=== PATIENT | female | born 1955 | race Caucasian/White ===

== ENCOUNTER 2020-03-26 11:40 | Emergency (ER) | payer SELFPAY ==
[~2020-03-26] VITALS: Ht 160 cm; Wt 81.7 kg
[2020-03-26 12:03] LABS: BASOPHILS ABSOLUTE AUTO 0.14 K/mm3 (0.00-0.23); BASOPHILS PERCENT AUTO 2 % (0-2); EOSINOPHILS ABSOLUTE AUTO 0.84 K/mm3 (0.00-0.68); EOSINOPHILS PERCENT AUTO 10 % (0-6); Hemoglobin 14.3 g/dL (11.5-16.0); IMMATURE GRAN ABSOLUTE AUTO 0.03 K/mm3 (0.00-0.10); IMMATURE GRAN PERCENT AUTO 0 % (0-1); LYMPHOCYTES ABSOLUTE AUTO 2.54 K/mm3 (0.84-5.20); LYMPHOCYTES PERCENT AUTO 30 % (21-46); MONOCYTES ABSOLUTE AUTO 0.62 K/mm3 (0.16-1.47); MONOCYTES PERCENT AUTO 7 % (4-13); Mean Corpuscular HGB 27.6 pg (26.0-34.0); Mean Corpuscular HGB Conc 31.1 g/dL (31.5-36.5); Mean Corpuscular Volume 89 fL (80-100); Mean Platelet Volume 9.1 fL (9.1-12.4); NEUTROPHILS ABSOLUTE AUTO 4.43 K/mm3 (1.96-9.15); NEUTROPHILS PERCENT AUTO 52 % (41-73); Platelet Count 362 K/mm3 (150-400); RDW Coefficient Variation 13.4 % (11.7-14.2); RDW Standard Deviation 43.6 fL (35.1-46.3); Red Blood Cell Count 5.19 M/mm3 (3.80-5.20)
[2020-03-26 12:23] LABS: Alanine Aminotransfer (ALT/SGP 16 U/L (12-78); Albumin, Blood 3.6 g/dL (3.4-5.0); Alk Phos 164 U/L (50-136); Anion Gap 6 mmol/L (6-16); Aspartate Aminotrans (AST/SGOT 12 U/L (12-37); Bilirubin, Total 0.3 mg/dL (0.1-1.0); Blood Urea Nitrogen 8 mg/dL (8-24); Bun/Creatinine Ratio 11.5 (12.0-20.0); CO2, Blood 26 mmol/L (21-32); Calcium, Blood 8.7 mg/dL (8.5-10.1); Chloride, Blood 109 mmol/L (98-108); Globulin, Blood 3.7 g/dL (2.2-4.0); Glomerular Filtration Rate >60 (60-); Glucose, Blood 151 mg/dL (70-99); Potassium, Blood 3.9 mmol/L (3.5-5.5); Sodium, Blood 141 mmol/L (136-145); Total Protein, Blood 7.3 g/dL (6.4-8.2); Troponin I <0.015 ng/mL (0.000-0.040)
[2020-03-26] MEDS ORDERED: AMLODIPINE BESYL5 MG PO (15:13)
[2020-03-26] MEDS ORDERED: NEURONTIN300 MG PO (15:13)
[2020-03-26] MEDS ORDERED: COMBIVENT RESPIM4 G1 (15:14)
[2020-03-26] MEDS ORDERED: ALBU2.5V5 (15:14)
[2020-03-26] MEDS ORDERED: ALBU90OI6 INH (15:14)
[2020-03-26] MEDS ORDERED: OMEPRAZOLE20 M2 PO (15:14)
[2020-03-26] MEDS ORDERED: AMLO5 PO (15:51)
[2020-03-26] MEDS ORDERED: ALBUTEROL2.5 MG/0.5 INH (15:51)
[2020-03-26] MEDS ORDERED: Prednisone20 MG PO (15:51)
[2020-03-26] MEDS ORDERED: COMBIVENT RESPIM4 G1 INH (15:51)
== END 2020-03-26 16:16 | disposition home or self-care (01) ==
LOC: ER 11:40
PROVIDERS: Emergency Medicine
DX: J44.1 Chronic obstructive pulmonary disease with (acute) exacerbation (principal); Z76.0 Encounter for issue of repeat prescription; Z88.8 Allergy status to other drugs, medicaments and biological substances; Z87.891 Personal history of nicotine dependence; Z79.899 Other long term (current) drug therapy
CPT/HCPCS: 71046; 80053; 83880; 84484; 85025; 93005; 93010; 99284-25; J7512

== ENCOUNTER 2020-04-20 14:08 | Emergency (ER) | payer OTHER ==
[~2020-04-20] VITALS: Ht 160 cm; Wt 81.7 kg
[~2020-04-20 14:08] MED LIST: ALBU2.5V5; ALBU90OI6 INH; ALBUTEROL2.5 MG/0.5 INH; AMLO5 PO; AMLODIPINE BESYL5 MG PO; COMBIVENT RESPIM4 G1; COMBIVENT RESPIM4 G1 INH; NEURONTIN300 MG PO; OMEPRAZOLE20 M2 PO; Prednisone20 MG PO
[2020-04-20 14:38] LABS: BASOPHILS ABSOLUTE AUTO 0.12 K/mm3 (0.00-0.23); BASOPHILS PERCENT AUTO 2 % (0-2); EOSINOPHILS ABSOLUTE AUTO 1.24 K/mm3 (0.00-0.68); EOSINOPHILS PERCENT AUTO 17 % (0-6); Hematocrit 43.4 % (33.0-51.0); Hemoglobin 13.2 g/dL (11.5-16.0); IMMATURE GRAN ABSOLUTE AUTO 0.02 K/mm3 (0.00-0.10); IMMATURE GRAN PERCENT AUTO 0 % (0-1); LYMPHOCYTES PERCENT AUTO 32 % (21-46); MONOCYTES ABSOLUTE AUTO 0.47 K/mm3 (0.16-1.47); MONOCYTES PERCENT AUTO 6 % (4-13); Mean Corpuscular HGB 27.1 pg (26.0-34.0); Mean Corpuscular HGB Conc 30.4 g/dL (31.5-36.5); Mean Corpuscular Volume 89 fL (80-100); Mean Platelet Volume 8.9 fL (9.1-12.4); NEUTROPHILS ABSOLUTE AUTO 3.22 K/mm3 (1.96-9.15); NEUTROPHILS PERCENT AUTO 43 % (41-73); Platelet Count 392 K/mm3 (150-400); RDW Coefficient Variation 13.3 % (11.7-14.2); RDW Standard Deviation 43.8 fL (35.1-46.3); Red Blood Cell Count 4.87 M/mm3 (3.80-5.20); White Blood Cell Count 7.47 K/mm3 (4.00-11.30)
[2020-04-20 14:57] LABS: Alanine Aminotransfer (ALT/SGP 17 U/L (12-78); Albumin, Blood 3.4 g/dL (3.4-5.0); Albumin/Globulin Ratio 0.9 (0.8-1.8); Alk Phos 154 U/L (50-136); Anion Gap 5 mmol/L (6-16); Aspartate Aminotrans (AST/SGOT 9 U/L (12-37); Bilirubin, Total 0.3 mg/dL (0.1-1.0); Blood Urea Nitrogen 11 mg/dL (8-24); Bun/Creatinine Ratio 15.2 (12.0-20.0); CO2, Blood 29 mmol/L (21-32); Calcium, Blood 8.6 mg/dL (8.5-10.1); Chloride, Blood 110 mmol/L (98-108); Creatinine, Blood 0.73 mg/dL (0.40-1.00); Globulin, Blood 3.8 g/dL (2.2-4.0); Glomerular Filtration Rate >60 (60-); Glucose, Blood 122 mg/dL (70-99); Potassium, Blood 4.1 mmol/L (3.5-5.5); Sodium, Blood 144 mmol/L (136-145); Total Protein, Blood 7.2 g/dL (6.4-8.2)
[2020-04-20] MEDS ORDERED: Prednisone50 MG PO (20:11)
[2020-04-20] MEDS ORDERED: AZIT250 PO (20:11)
== END 2020-04-20 20:38 | disposition home or self-care (01) ==
LOC: ER 14:08
PROVIDERS: Physician Assistant
DX: J44.1 Chronic obstructive pulmonary disease with (acute) exacerbation (principal); Z88.8 Allergy status to other drugs, medicaments and biological substances; Z79.899 Other long term (current) drug therapy; Z79.52 Long term (current) use of systemic steroids; Z87.891 Personal history of nicotine dependence
CPT/HCPCS: 36415; 71046; 80053; 85025; 93005; 93010; 94640; 94644; 99284-25; J7512

== ENCOUNTER 2020-05-14 11:57 | Emergency (ER) | payer OTHER ==
[~2020-05-14] VITALS: Ht 160 cm; Wt 83.9 kg
[~2020-05-14 11:57] MED LIST changes: +AZIT250 PO; +Prednisone50 MG PO
[2020-05-14 12:58] LABS: BASOPHILS ABSOLUTE AUTO 0.11 K/mm3 (0.00-0.23); BASOPHILS PERCENT AUTO 2 % (0-2); EOSINOPHILS ABSOLUTE AUTO 0.98 K/mm3 (0.00-0.68); EOSINOPHILS PERCENT AUTO 15 % (0-6); Hematocrit 45.9 % (33.0-51.0); Hemoglobin 14.1 g/dL (11.5-16.0); IMMATURE GRAN ABSOLUTE AUTO 0.01 K/mm3 (0.00-0.10); IMMATURE GRAN PERCENT AUTO 0 % (0-1); LYMPHOCYTES ABSOLUTE AUTO 1.84 K/mm3 (0.84-5.20); LYMPHOCYTES PERCENT AUTO 28 % (21-46); MONOCYTES ABSOLUTE AUTO 0.52 K/mm3 (0.16-1.47); MONOCYTES PERCENT AUTO 8 % (4-13); Mean Corpuscular HGB 27.3 pg (26.0-34.0); Mean Corpuscular HGB Conc 30.7 g/dL (31.5-36.5); Mean Corpuscular Volume 89 fL (80-100); Mean Platelet Volume 9.1 fL (9.1-12.4); NEUTROPHILS ABSOLUTE AUTO 3.14 K/mm3 (1.96-9.15); NEUTROPHILS PERCENT AUTO 48 % (41-73); Platelet Count 371 K/mm3 (150-400); RDW Coefficient Variation 13.5 % (11.7-14.2); RDW Standard Deviation 43.9 fL (35.1-46.3); Red Blood Cell Count 5.17 M/mm3 (3.80-5.20)
[2020-05-14] MEDS ORDERED: ALBUTEROL1.25 MG/3 NEB (14:31)
[2020-05-14] MEDS ORDERED: Prednisone20 MG PO (14:31)
== END 2020-05-14 14:46 | disposition home or self-care (01) ==
LOC: ER 11:57
PROVIDERS: Physician Assistant
DX: J44.1 Chronic obstructive pulmonary disease with (acute) exacerbation (principal); Z88.8 Allergy status to other drugs, medicaments and biological substances; Z79.52 Long term (current) use of systemic steroids; Z79.899 Other long term (current) drug therapy
CPT/HCPCS: 71045; 85025; 94640; 96374; 99284-25; J2930

== ENCOUNTER 2021-02-23 20:07 | Inpatient (IN) | payer OTHER ==
[~2021-02-23] VITALS: Ht 160 cm; Wt 86.2 kg
[~2021-02-23 20:07] MED LIST changes: +ALBUTEROL1.25 MG/3 NEB
[2021-02-23 20:30] LABS: Source, Urine Clean Catch
[2021-02-23 20:33] LABS: Appearance, Urine Clear (Clear); Bilirubin, Urine Neg (Neg); Blood, Urine 1+ (Neg); Color, Urine Yellow (P-Yellow); Glucose Qualitative, Urine Neg (Neg); Ketones, Urine Neg (Neg); Leukocyte Esterase, Urine 1+ (Neg); Nitrite, Urine Neg (Neg); Protein, Urine Neg (Neg); Urobilinogen, Urine NORM (Normal)
[2021-02-23 20:40] LABS: Bacteria Mod /hpf; Red Blood Cells, Urine 0-2 /hpf (0-2); Squamous Epithelial Cells Few /hpf (Few)
[2021-02-23 20:52] LABS: BASOPHILS ABSOLUTE AUTO 0.15 K/mm3 (0.00-0.23); BASOPHILS PERCENT AUTO 2 % (0-2); EOSINOPHILS ABSOLUTE AUTO 0.76 K/mm3 (0.00-0.68); EOSINOPHILS PERCENT AUTO 9 % (0-6); Hemoglobin 13.4 g/dL (11.5-16.0); IMMATURE GRAN ABSOLUTE AUTO 0.04 K/mm3 (0.00-0.10); IMMATURE GRAN PERCENT AUTO 1 % (0-1); LYMPHOCYTES ABSOLUTE AUTO 2.51 K/mm3 (0.84-5.20); LYMPHOCYTES PERCENT AUTO 28 % (21-46); MONOCYTES ABSOLUTE AUTO 0.68 K/mm3 (0.16-1.47); MONOCYTES PERCENT AUTO 8 % (4-13); Mean Corpuscular HGB 27.1 pg (26.0-34.0); Mean Corpuscular HGB Conc 31.9 g/dL (31.5-36.5); Mean Corpuscular Volume 85 fL (80-100); Mean Platelet Volume 9.1 fL (9.1-12.4); NEUTROPHILS PERCENT AUTO 53 % (41-73); Platelet Count 404 K/mm3 (150-400); RDW Coefficient Variation 13.9 % (11.7-14.2); Red Blood Cell Count 4.94 M/mm3 (3.80-5.20); White Blood Cell Count 8.84 K/mm3 (4.00-11.30)
[2021-02-23 21:15] LABS: Albumin, Blood 3.7 g/dL (3.4-5.0); Bilirubin, Total 0.2 mg/dL (0.1-1.0); Bun/Creatinine Ratio 12.2 (12.0-20.0); Calcium, Blood 8.9 mg/dL (8.5-10.1); Creatinine, Blood 0.99 mg/dL (0.40-1.00); Globulin, Blood 3.8 g/dL (2.2-4.0); Potassium, Blood 4.2 mmol/L (3.5-5.5); Total Protein, Blood 7.5 g/dL (6.4-8.2)
[2021-02-23] MEDS ORDERED: Primidone50 MG PO (21:42)
[2021-02-23 23:57] LABS: Influenza A, PCR NEGATIVE (NEGATIVE); Influenza B, PCR NEGATIVE (NEGATIVE); Resp Syncytial Virus, PCR NEGATIVE (NEGATIVE); SARS-Cov-2 (COVID-19) PCR, MMC NEGATIVE (NEGATIVE)
[2021-02-24] MEDS ORDERED: FLUT1DIS2 (00:20)
--- NOTE | 2021-02-24 05:05 | NUR ---
SHIFT SUMMARY: DAYANA IS A&OX4. VSS, NO ACUTE EVENTS OVERNIGHT. SHE REPORTS ADEQUATE PAIN CONTROL WITH 1 MG OF DILAUDID. IV TO R HAND PATENT, FLUIDS INFUSING. SHE IS URINATING WITHOUT DIFFICULTY, DENEIS ANY PAIN OR URGENCY. SHE HAS BEEN NPO SINCE MIDNIGHT, USES THE CALL LIGHT APPROPRIATELY, AND IS MAINTAINING SATS ORA. HER BLOOD PRESSURE ELEVATES SIGNIFICANTLY IN CORRELATION WITH HER PAIN LEVEL. SHE IS LYING IN BED WITH THE CALL LIGHT IN REACH. WILL REPORT TO DAY SHIFT RN.
--- NOTE | 2021-02-24 15:30 | NUR ---
PATIENT TO PREOP WITH OR STAFF
--- NOTE | 2021-02-24 15:35 | NUR ---
SODER TO BEDSIDE, PLAN TO RESCHEDULE FOR TOMORROW AT 0830.
--- NOTE | 2021-02-24 15:41 | NUR ---
PATIENT BACK TO ROOM. NO SURGERY TODAY. CLEAR LIQUID DIET UNTIL MIDNIGHT. NPO AFTER MIDNIGHT FOR POSSIBLE SURGERY TOMORROW. WILL CONTINUE TO MONITOR
--- NOTE | 2021-02-24 18:07 | NUR ---
SHIFT SUMMARY PATIENT ALERT AND ORIENTED T/O SHIFT. VSS AND PATIENT REMAINS ON ROOM AIR. MEDICATED FOR PAIN AND NAUSEA PER EMAR. PATIENT INDEPENDENT IN THE ROOM. NO OTHER SIGNIFICANT CHANGES. CALL LIGHT IN REACH. WILL REPORT TO CLINICAL ADMISSIONS MANAGER.
--- NOTE | 2021-02-24 19:00 | NUR ---
RECEIVED REPORT AND ASSUMED CARE OF PT. SHE IS RESTING QUIETLY IN BED WITH EVEN, UNLABORED RESPIRATIONS. WCMAHAMED.
--- NOTE | 2021-02-25 07:35 | NUR ---
SHIFT SUMMARY: DAYANA IS A&OX4, VSS, NO ACUTE EVENTS OVERNIGHT. SHE WAS MADE NPO AT MIDNIGHT. SHE IS INDEPENDENT IN THE ROOM, REPORTS ADEQUATE PAIN CONTROL WITH 1 MG OF DILAUDID. SHE IS ABLE TO MAKE HER NEEDS KNOWN. SHE IS LYING IN BED WITH THE CALL LIGHT IN REACH, REPORT GIVEN TO DAY SHIFT RN.
--- NOTE | 2021-02-25 16:16 | NUR ---
SHIFT SUMMARY PT A&OX4, VSS/RA/DEEP BREATHING AND I.S. EDU&ENC, LYSSA CLD-ADVANCING TO FULL DIET FOR DINNER/REG FOR BREAKFAST. PAIN MANAGED PER EMAR. AMBULATING SBA TO BRP, VOIDING WELL. 20G RHAND/SL. S/P LAP JACQUELYN, 4 LAP SITES/GAUZE/TEGADERM. WILL REPORT TO ONCOMING SEGUNDO MCKINLEY.
--- NOTE | 2021-02-26 03:43 | NUR ---
REFUSING IV PT LOST IV ACCESS AND IS REFUSING TO HAVE ANOTHER ONE PLACED AT THIS TIME. SHE STATES THAT SHE IS A DIFFICULT STICK AND DOES NOT WANT TO BE POKED AGAIN. PT FINISHED MOST OF 0300 DOSE OF IV ABX BEFORE LOSING ACCESS LEAVING ABOUT 30 CC. PT TO DISCARGE TOMORROW.
--- NOTE | 2021-02-26 04:38 | NUR ---
SHIFT SUMMARY PT HAS SLEPT MOST OF THE NIGHT. PT PAIN HAS BEEN MINIMAL THIS SHIFT, PT PAIN INCREASES WITH MOVEMENT AND REPOSITIONING. MEDICATED X1 FOR PAIN. PT HAS HAD NO N/V THIS SHIFT, ADVANCING DIET TOLEATED, PT HAS DONE WELL. PT LOST IV ACCESS THIS SHIFT AND IS REFUSING TO HAVE ANOTHER ONE PLACED. PLAN IS FOR DC TODAY. BED IN LOWEST POSITION, CALL LIGHT WITHIN REACH.
[2021-02-26] MEDS ORDERED: HYDR1TAB94 PO (09:22)
--- NOTE | 2021-02-26 10:06 | NUR ---
DISCHARGING PT HAD NO IV ACCESS PRESENT. REVIEWED DC INSTRUCTIONS W/PT; VERBALIZED UNDERSTANDING. PT CALLING RIDE AND GETTING DRESSED AT THIS TIME.
--- NOTE | 2021-02-26 10:42 | NUR ---
DISCHARGED PT LEFT UNIT IN WC W/POSSESSIONS AND DC PAPERWORK IN HAND TO RIDE WAITING OUTSIDE.
== END 2021-02-26 10:42 | disposition home or self-care (01) | DRG 419 ==
LOC: ER 20:07 → SURS 20:08
PROVIDERS: Emergency Medicine; Physician Assistant; ADMIT Surgery
PROC: 3E02340 Introduction of Influenza Vaccine into Muscle, Percutaneous Approach (ICD-10-PCS; 2021-02-25)
PROC: 0FT44ZZ Resection of Gallbladder, Percutaneous Endoscopic Approach (ICD-10-PCS; principal; 2021-02-25 09:00)
DX: K80.00 Calculus of gallbladder with acute cholecystitis without obstruction (principal); K82.A1 Gangrene of gallbladder in cholecystitis; Z88.8 Allergy status to other drugs, medicaments and biological substances; J44.9 Chronic obstructive pulmonary disease, unspecified; I10 Essential (primary) hypertension; Z20.822 Contact with and (suspected) exposure to COVID-19; K21.9 Gastro-esophageal reflux disease without esophagitis; Z79.899 Other long term (current) drug therapy; Z98.890 Other specified postprocedural states; Z87.891 Personal history of nicotine dependence; Z23 Encounter for immunization
CPT/HCPCS: 0241U; 36415; 76705; 80053; 81001; 82947; 83690; 85025; 87077; 87086; 87186; 90686; 96374; 96375; 99285-25; A9270; G0378; J0295; J1100; J1170; J1885; J2250; J2270; J2405; J2704; J3010; J7030; J7050; J7120

== ENCOUNTER → 2022-12-31 | Outpatient (CLI) | payer MEDICARE, OTHER ==
[~2022-12-31] MED LIST changes: +FLUT1DIS2; +HYDR1TAB94 PO; +Primidone50 MG PO
[2023-01-03 15:07] LABS: HPV 16 Negative (Negative); HPV 18 Negative (Negative); HPV OTHER HR TYPES Negative (Negative)
== END ==
LOC: LAB 11:57 → LAB SHORT 11:57
PROVIDERS: Family Medicine
DX: Z01.419 Encounter for gynecological examination (general) (routine) without abnormal findings (principal)
CPT/HCPCS: 87624; G0145

== ENCOUNTER → 2023-01-23 | Outpatient (CLI) | payer MEDICARE, OTHER | LOC: LAB 09:41 → LAB SHORT 09:41 | DX: R30.0 Dysuria (principal) | CPT/HCPCS: 87077; 87086; 87186 ==